=== PATIENT | male | born 1985 | race Caucasian/White ===

== ENCOUNTER 2018-06-10 17:10 | Emergency (ER) | payer SELFPAY ==
[2018-06-10 17:24] VITALS: BP 113/75; PULSE 95; RESP 16; TEMP 36.5; O2SAT 95
--- NOTE | 2018-06-10 18:28 | ED.GENADUL_ITS ---
Discharge Plan Disposition Patient Disposition: HOME Condition: Fair Discharge Details Chief Complaint: EyeProblem Clinical Impression: Hordeolum Primary Care Provider: José Manuel Stern ED Provider: Sylwia Andersen Home Meds and New Rx's Prescriptions: Continue lisinopril 10 MG tablet 30 mg PO DAILY RF: 0 fluoxetine [Prozac] 20 MG capsule 1 cap PO DAILY RF: 0 ibuprofen 600 MG tablet 600 mg PO Q8H PRN (Reason: Pain) Qty: 20 RF: 0 omeprazole magnesium [Prilosec OTC] 20 MG tablet,delayed release (DR/EC) 40 mg PO PRN PRNRF: 0 Discharge Instructions Instructions: Stye (ED) Additional Instructions: Warm compresses 4-5 times daily. Please keep warm compress on for 15 minutes. Erythromycin ointment to the affected eye 4 times daily. Please follow-up with primary care in 1 week if symptoms are not improving. Please wash the eye twice daily with baby shampoo. If he develops eye pain, visual changes, fever/ chills, spreading of the redness or other new/worsening symptoms please seek care urgently once again Referrals: José Manuel Stern [Primary Care Provider] - ([phone]) Discharge Data Discharge Date/Time-TO BE ENTERED AT DEPARTURE: 06/10/18 22:07 Medical Decision Making MDM Narrative Medical decision making narrative: Patient presents today with 2 focal areas of swelling, discomfort and erythema to the inferior left eyelid. Patient reports that he has had styes in the past. States he is he is used warm compresses very intermittently since onset of symptoms. I advised that he begin using warm compresses for 15 minutes 4-5 times daily. Advised to wash with baby shampoo. As this is a recurrent issue for the patient in the area has continued to increase in size and erythema as well as discomfort, feel that antibiotics are warranted at this time. He will be treated with erythromycin ophthalmic ointment. Instructions on how to place this will be given by nursing staff. I have asked to follow-up with primary care within the next week. We discussed new/worsening symptoms once care urgently once again. All his questions and concerns were addressed and he is in agreement with this plan. HPI - General Adult General Mode of arrival: ambulatory . Date/Time Provider Initiated Documentation: 06/10/18 17:53 . Limitations to Documentation: no limitations . Information obtained by: patient . HPI Narrative: Patient is a 29-year-old male presented with chief complaint of left eye discomfort. He reports symptoms began 4 days ago. Noted swelling and erythema to the lower eyelid. States that he has had issues with styes in the past. Reports that this is similar component although the medial one is much more swollen typical. He states that the patient seems to be blurring but attributes this to overabundance of tearing. Denies any visual changes beyond the excessive tearing. Denies any pain in the eye itself with movement of the eye. However, blinking does cause discomfort in the lower lid. He has been using warm compresses intermittently. Denies any fevers or chills Related Data Home Medications Medication Instructions Recorded Confirmed fluoxetine [Prozac] 1 cap PO DAILY 12/24/14 06/10/18 lisinopril 30 mg PO DAILY 12/24/14 06/10/18 omeprazole magnesium [Prilosec OTC] 40 mg PO PRN PRN 04/10/18 06/10/18 Previous Rx's Medication Instructions Recorded ibuprofen 600 mg PO Q8H PRN #20 tab 04/06/18 Allergies Allergy/AdvReac Type Severity Reaction Status Date / Time No Known Allergies Allergy Unverified 06/10/18 17:26 General Stated Complaint: EyeProblem TANNA: 3 Review of Systems Constitutional Reports as per HPI, Denies chills, Denies fever(s) and Denies headache(s) Eyes Patient Reports as per HPI ENT Denies vertigo, Denies headache(s), Denies mouth pain, Denies nasal congestion and Denies nasal discharge Cardiovascular Denies chest pain Respiratory Denies chest congestion and Denies cough Gastrointestinal Denies nausea and Denies vomiting Integumentary/Breasts Denies rash Neurologic Denies vertigo and Denies headache(s) [facility]LY [facility] Social History Smoking/Tobacco Use Status: Former Tobacco Use Exam Const General: cooperative, healthy appearing, comfortable, no acute distress and well developed Nutritional Appearance: average body habitus Orientation: alert and awake [facility] Head: normal to inspection, normocephalic and atraumatic Ears: hearing grossly normal bilaterally, external ears normal and TM's normal bilaterally General nose exam: external nose normal Face and sinus: normal facial exam Mouth: oral mucosae normal Throat: posterior oropharynx normal Eyes Visual Tolentino: normal visual tolentino by confrontation Alignment and Position: alignment normal Eyelids: eyelid abnormality left lower eyelid inflamed cyst, erythema ( localized to areas of swelling, please see below), swelling and tenderness Conjunctivae: conjunctivae normal Pupils: PERRL EOM: EOM intact bilaterally Eyes/upper lids images: 2 1. 2. Neck Neck: normal visual inspection and no lymphadenopathy Resp Effort & Inspection: normal respiratory effort, able to speak in complete sentences and no respiratory distress Skin General skin exam: erythema (as above) Neuro General: alert and awake Cranial Nerves: PERRL, EOM intact bilaterally and no nystagmus Cognition: normal cognition Speech: speech normal Gait: normal gait Psych Appearance: grossly normal and well kempt Mental Status: mental status grossly normal Speech and Movement: speech and movement normal Mood: congruent mood Affect: normal affect Course Vital Signs Temperature 36.5 C 06/10/18 17:24 Pulse 95 H 06/10/18 17:24 Respiratory Rate 16 06/10/18 17:24 Blood Pressure 113/75 06/10/18 17:24 Pulse Oximetry 95 06/10/18 17:24 Temperature 36.5 C 06/10/18 17:24 Pulse 95 H 06/10/18 17:24 Respiratory Rate 16 06/10/18 17:24 Blood Pressure 113/75 06/10/18 17:24 Pulse Oximetry 95 06/10/18 17:24
[2018-06-10] MEDS: Erythromycin Ophth Oint 3.5 GM TUBE OS (18:38)
== END 2018-06-10 22:07 | disposition home or self-care (01) ==
PROVIDERS: Emergency Provider Physician Assistant; PCP Family Medicine
DX: H00.025 Hordeolum internum left lower eyelid (principal)
CPT/HCPCS: 99283

== ENCOUNTER 2019-03-12 17:35 | Emergency (ER) | payer SELFPAY ==
[2019-03-12 17:41] VITALS: BP 129/75; PULSE 91; RESP 20; TEMP 36.9; O2SAT 96
--- NOTE | 2019-03-12 18:00 | W.ED.GENAD ---
Discharge Plan Disposition Patient Disposition: HOME Condition: Fair Discharge Details Chief Complaint: Cellulitis Clinical Impression: Abscess, Cellulitis Primary Care Provider: José Manuel Stern ED Provider: Sylwia Andersen Home Meds and New Rx's Prescriptions: New clindamycin HCl 150 mg capsule 450 mg PO TID Qty: 45 RF: 0 Continued lisinopril 10 MG tablet 30 mg PO DAILY RF: 0 fluoxetine [Prozac] 20 MG capsule 1 cap PO DAILY RF: 0 ibuprofen 600 MG tablet 600 mg PO Q8H PRN (Reason: Pain) Qty: 20 RF: 0 Prilosec OTC 20 MG tablet,delayed release (DR/EC) 40 mg PO PRN PRNRF: 0 Discharge Instructions Instructions: Cellulitis (ED), Abscess (ED) Additional Instructions: Keep wound clean and dry. Please allow discharge to continue. Please take clindamycin as prescribed. Even if symptoms improve, please take the entire course. If the redness spreads beyond the confines of the marker, you develop fever/chills, increased pain or other new/worsening symptoms please seek care urgently once again. Please follow-up with primary care next week for reevaluation Referrals: José Manuel Stern [Primary Care Provider] - Discharge Data Discharge Date/Time-TO BE ENTERED AT DEPARTURE: 03/12/19 18:12 Medical Decision Making Patient presents today with chief complaint of bug bite to the upper abdomen. He reports a bug bite was approximately 2 weeks ago but that over the weekend he began to become erythematous and painful. States that initially it is quite itchy and appeared consistent with mosquito bite. On exam, he has cellulitis to the upper abdomen with central area of fluctuance consistent with an abscess. This is actively draining and I am able to express more out through the open wounds. At this point, I do not feel that opening this further is necessary. Patient will be placed on antibiotics. We discussed the expected course for this. He was given strict return precautions. We will follow-up with primary care next week if not improved. All his questions and concerns were addressed and he is in agreement with this plan As patient is on Lisinopril, will not use Bactrim, will use Clindamycin. HPI General Mode of arrival: ambulatory. Date/Time Provider Initiated Documentation: 03/12/19 17:48. Limitations to Documentation: no limitations. Information obtained by: patient and RN notes reviewed. History of Present Illness 33 year old M presents to the emergency department with the chief complaint of infected bug bite, described as moderate, with intensity rated at 4. Quality is described as burning, and is localized to the abdomen. Patient reports no radiation. Patient started experiencing this day(s) and it has been constant. No relieving factors improve symptom(s), No exacerbating factors reported . Patient notes no other symptoms.; denies fever/chills, nausea/vomiting and weakness. Patient did receive the following treatments prior to arrival, none Related Data Home Medications Medication Instructions Recorded Confirmed fluoxetine [Prozac] 1 cap PO DAILY 12/24/14 03/12/19 lisinopril 30 mg PO DAILY 12/24/14 03/12/19 ibuprofen 600 mg PO Q8H PRN #20 tab 04/06/18 03/12/19 Prilosec OTC 40 mg PO PRN PRN 04/10/18 03/12/19 clindamycin HCl 450 mg PO TID #45 cap 03/12/19 Previous Rx's Medication Instructions Recorded ibuprofen 600 mg PO Q8H PRN #20 tab 04/06/18 clindamycin HCl 450 mg PO TID #45 cap 03/12/19 Allergies Allergy/AdvReac Type Severity Reaction Status Date / Time No Known Allergies Allergy Unverified 03/12/19 17:42 General Stated Complaint: Cellulitis TANNA: 3 Review of Systems Constitutional Reports as per HPI, Denies chills and Denies fever(s) Musculoskeletal Reports as per HPI Integumentary/Breasts Reports as per HPI Neurologic Reports as per HPI, Denies sensory deficit and Denies paresthesias [facility] Social History Smoking/Tobacco Use Status: Former Tobacco Use Alcohol Intake: former Drug use: Daily Substance use type: marijuana Special ivan needs: No Do you feel safe at home: Yes Do you feel safe in your relationship?: Yes Exam Const General: cooperative, healthy appearing, comfortable, no acute distress and well developed Nutritional Appearance: average body habitus and well nourished Orientation: alert and awake Resp Effort & Inspection: normal respiratory effort, able to speak in complete sentences and no respiratory distress Cardio Rate: regular rate Rhythm: regular rhythm GI Inspection: abnormal to inspection (skin exam as below) Skin General skin exam: erythema (cellulitis to abdomen as below) and fluctuance (central area of fluctuance, draining thick yellow fluid) Full body images: 1. area of abscess 2. surrounding erythema Neuro General: alert and awake Cognition: normal cognition Speech: speech normal Gait: normal gait Sensory Exam: no sensory deficits noted Psych Appearance: grossly normal and well kempt Mental Status: mental status grossly normal Speech and Movement: speech and movement normal Course Vital Signs Temperature 36.9 C 03/12/19 17:41 Pulse 91 H 03/12/19 17:41 Respiratory Rate 20 03/12/19 17:41 Blood Pressure 129/75 03/12/19 17:41 Pulse Oximetry 96 03/12/19 17:41 Temperature 36.9 C 03/12/19 17:41 Temperature Source Temporal Artery Scan 03/12/19 17:41 Pulse 91 H 03/12/19 17:41 Respiratory Rate 20 03/12/19 17:41 Respiratory Effort Non-Labored 03/12/19 17:41 Blood Pressure 129/75 03/12/19 17:41 Pulse Oximetry 96 03/12/19 17:41 Pain Level 4 03/12/19 17:41
--- NOTE | 2019-03-12 18:04 | ED.GENADUL_ITS ---
Discharge Plan Disposition Patient Disposition: HOME Condition: Fair Discharge Details Chief Complaint: Cellulitis Clinical Impression: Abscess, Cellulitis Primary Care Provider: José Manuel Stern ED Provider: Sylwia Andersen Home Meds and New Rx's Prescriptions: New clindamycin HCl 150 mg capsule 450 mg PO TID Qty: 45 RF: 0 Continued lisinopril 10 MG tablet 30 mg PO DAILY RF: 0 fluoxetine [Prozac] 20 MG capsule 1 cap PO DAILY RF: 0 ibuprofen 600 MG tablet 600 mg PO Q8H PRN (Reason: Pain) Qty: 20 RF: 0 Prilosec OTC 20 MG tablet,delayed release (DR/EC) 40 mg PO PRN PRNRF: 0 Discharge Instructions Instructions: Cellulitis (ED), Abscess (ED) Additional Instructions: Keep wound clean and dry. Please allow discharge to continue. Please take clindamycin as prescribed. Even if symptoms improve, please take the entire course. If the redness spreads beyond the confines of the marker, you develop fever/chills, increased pain or other new/worsening symptoms please seek care urgently once again. Please follow-up with primary care next week for reevaluation Referrals: José Manuel Stern [Primary Care Provider] - Discharge Data Discharge Date/Time-TO BE ENTERED AT DEPARTURE: 03/12/19 18:12 Medical Decision Making Patient presents today with chief complaint of bug bite to the upper abdomen. He reports a bug bite was approximately 2 weeks ago but that over the weekend he began to become erythematous and painful. States that initially it is quite itchy and appeared consistent with mosquito bite. On exam, he has cellulitis to the upper abdomen with central area of fluctuance consistent with an abscess. This is actively draining and I am able to express more out through the open wounds. At this point, I do not feel that opening this further is necessary. Patient will be placed on antibiotics. We discussed the expected course for this. He was given strict return precautions. We will follow-up with primary care next week if not improved. All his questions and concerns were addressed and he is in agreement with this plan As patient is on Lisinopril, will not use Bactrim, will use Clindamycin. HPI General Mode of arrival: ambulatory . Date/Time Provider Initiated Documentation: 03/12/19 17:48 . Limitations to Documentation: no limitations . Information obtained by: patient and RN notes reviewed . History of Present Illness 33 year old M presents to the emergency department with the chief complaint of infected bug bite, described as moderate, with intensity rated at 4. Quality is described as burning, and is localized to the abdomen. Patient reports no radiation. Patient started experiencing this day(s) and it has been constant. No relieving factors improve symptom(s), No exacerbating factors reported . Patient notes no other symptoms.; denies fever/chills, nausea/vomiting and weakness. Patient did receive the following treatments prior to arrival, none Related Data Home Medications Medication Instructions Recorded Confirmed fluoxetine [Prozac] 1 cap PO DAILY 12/24/14 03/12/19 lisinopril 30 mg PO DAILY 12/24/14 03/12/19 ibuprofen 600 mg PO Q8H PRN #20 tab 04/06/18 03/12/19 Prilosec OTC 40 mg PO PRN PRN 04/10/18 03/12/19 clindamycin HCl 450 mg PO TID #45 cap 03/12/19 Previous Rx's Medication Instructions Recorded ibuprofen 600 mg PO Q8H PRN #20 tab 04/06/18 clindamycin HCl 450 mg PO TID #45 cap 03/12/19 Allergies Allergy/AdvReac Type Severity Reaction Status Date / Time No Known Allergies Allergy Unverified 03/12/19 17:42 General Stated Complaint: Cellulitis TANNA: 3 Review of Systems Constitutional Reports as per HPI, Denies chills and Denies fever(s) Musculoskeletal Reports as per HPI Integumentary/Breasts Reports as per HPI Neurologic Reports as per HPI, Denies sensory deficit and Denies paresthesias REPLACED BY [facility] Social History Smoking/Tobacco Use Status: Former Tobacco Use Alcohol Intake: former Drug use: Daily Substance use type: marijuana Special ivan needs: No Do you feel safe at home: Yes Do you feel safe in your relationship?: Yes Exam Const General: cooperative, healthy appearing, comfortable, no acute distress and well developed Nutritional Appearance: average body habitus and well nourished Orientation: alert and awake Resp Effort & Inspection: normal respiratory effort, able to speak in complete sentences and no respiratory distress Cardio Rate: regular rate Rhythm: regular rhythm GI Inspection: abnormal to inspection (skin exam as below) Skin General skin exam: erythema (cellulitis to abdomen as below) and fluctuance (central area of fluctuance, draining thick yellow fluid) Full body images: 1. area of abscess 2. surrounding erythema Neuro General: alert and awake Cognition: normal cognition Speech: speech normal Gait: normal gait Sensory Exam: no sensory deficits noted Psych Appearance: grossly normal and well kempt Mental Status: mental status grossly normal Speech and Movement: speech and movement normal Course Vital Signs Temperature 36.9 C 03/12/19 17:41 Pulse 91 H 03/12/19 17:41 Respiratory Rate 20 03/12/19 17:41 Blood Pressure 129/75 03/12/19 17:41 Pulse Oximetry 96 03/12/19 17:41 Temperature 36.9 C 03/12/19 17:41 Temperature Source Temporal Artery Scan 03/12/19 17:41 Pulse 91 H 03/12/19 17:41 Respiratory Rate 20 03/12/19 17:41 Respiratory Effort Non-Labored 03/12/19 17:41 Blood Pressure 129/75 03/12/19 17:41 Pulse Oximetry 96 03/12/19 17:41 Pain Level 4 03/12/19 17:41
[2019-03-12 18:09] VITALS: BP 129/75; PULSE 91; RESP 20; TEMP 36.9; O2SAT 96
== END 2019-03-12 18:12 | disposition home or self-care (01) ==
PROVIDERS: Emergency Provider Physician Assistant; PCP Family Medicine
DX: L02.211 Cutaneous abscess of abdominal wall (principal); I10 Essential (primary) hypertension
CPT/HCPCS: 99283

== ENCOUNTER 2020-12-15 04:26 | Emergency (ER) | payer OTHER, SELFPAY ==
[2020-12-15 04:31] VITALS: BP 138/88; PULSE 86; RESP 18; TEMP 36.7; O2SAT 98
--- NOTE | 2020-12-15 04:38 | W.ED.GENAD ---
Discharge Plan Disposition Patient Disposition: HOME Condition: Stable Discharge Details Clinical Impression: Back strain, Muscle spasm Primary Care Provider: José Manuel Stern ED Provider: Jaden Cuadra Home Meds and New Rx's Prescriptions: New cyclobenzaprine 10 mg tablet 10 mg PO TID PRNQty: 20 RF: 0 Continued lisinopril 10 MG tablet 30 mg PO DAILY RF: 0 fluoxetine [Prozac] 20 MG capsule 1 cap PO DAILY RF: 0 ibuprofen 600 MG tablet 600 mg PO Q8H PRN (Reason: Pain) Qty: 20 RF: 0 omeprazole magnesium [Prilosec OTC] 20 MG tablet,delayed release (DR/EC) 40 mg PO PRN PRNRF: 0 Discharge Instructions Instructions: Muscle Spasm (ED) Additional Instructions: do not drink alcohol or drive if you take the muscle relaxer you can also take 1000mg tylenol and 600mg ibuprofen every 6 hours as needed for pain if pain continues in a week return to the emergency department if you have severe worsening pain, difficulty breathing, difficulty urinating or feel more ill return to the emergency department Stand Alone Forms: Work Release Medical Decision Making 34 yo male who has a hx of htn and gerd comes in after he was at work pulling heavy objects when he started to have mid to lower back pain. Denies falls or trauma. No fevers, difficulty urinating or weakness. He localizes the pain throughout the lumbar region without visible or palpable abnormality. No abdominal tenderness. Normal sensation and strength in the legs and no saddle anesthesia on exam. Pain and mechanism seem most consistent with back strain vs spasm. no findings to suggest cauda equina or spinal epidural abscess on history or physical and symptoms started after pulling heavy objects so also doubt kidney stone, dissection, aaa at this time. Will tx with nsaids and reassess. pt with mild relief of pain with toradol and stable exam. I offered to give him a muscle relaxer here and reassess him but he declines and would prefer d/c and take the muscle relaxer at home. Muscle relaxers provided and he was advised to f/u with pcp with return precautions Differential Diagnosis Differential Diagnosis: spasm, strain, radiculopathy HPI General Mode of arrival: ambulatory. Date/Time Provider Initiated Documentation: 12/15/20 04:32. Limitations to Documentation: no limitations. Information obtained by: patient. History of Present Illness 34 year old M presents to the emergency department with the chief complaint of back pain, described as moderate, Patient started experiencing this hour(s) (4) and it has been constant. No relieving factors improve symptom(s), No exacerbating factors reported . Patient notes no other symptoms.. Patient did receive the following treatments prior to arrival, none Related Data Home Medications Medication Instructions Recorded Confirmed fluoxetine [Prozac] 1 cap PO DAILY 12/24/14 12/15/20 lisinopril 30 mg PO DAILY 12/24/14 12/15/20 ibuprofen 600 mg PO Q8H PRN #20 tab 04/06/18 12/15/20 omeprazole magnesium [Prilosec OTC] 40 mg PO PRN PRN 04/10/18 12/15/20 cyclobenzaprine 10 mg PO TID PRN #20 tab 12/15/20 Previous Rx's Medication Instructions Recorded ibuprofen 600 mg PO Q8H PRN #20 tab 04/06/18 cyclobenzaprine 10 mg PO TID PRN #20 tab 12/15/20 Allergies Allergy/AdvReac Type Severity Reaction Status Date / Time No Known Allergies Allergy Unverified 12/15/20 04:34 General Stated Complaint: Nk/Back Pain TANNA: 4 Review of Systems All systems reviewed & are unremarkable except as noted in HPI and below Constitutional Constitutional: Denies chills, Denies fever(s) and Denies weakness Cardiovascular Cardiovascular: Denies chest pain and Denies dyspnea Respiratory Respiratory: Denies cough and Denies dyspnea Gastrointestinal Gastrointestinal: Denies abdominal pain, Denies nausea and Denies vomiting Musculoskeletal Musculoskeletal: Denies joint swelling Neurologic Neurologic: Denies weakness Psychiatric Psychiatric: Denies depression [facility] Social History (Updated 06/14/18 @ 08:42 by Yojana Lewis RN) Smoking/Tobacco Use Status: Former Tobacco Use Smoking risk assessment performed?: Yes Alcohol Intake: former Drug use: Daily Substance use type: marijuana Special ivan needs: No Do you feel safe at home: Yes Do you feel safe in your relationship?: Yes Exam Const General: no acute distress Orientation: alert HENMT Head: normal to inspection Ears: external ears normal General nose exam: external nose normal Mouth: moist mucous membranes Eyes General: appearance normal, both eyes and all related structures Neck Neck: normal visual inspection Resp Effort & Inspection: normal respiratory effort and able to speak in complete sentences Cardio Rate: regular rate Back/Spine/Pelvis Back: No mass, No erythema and No warmth Skin General skin exam: no rashes or lesions noted Neuro General: patient alert and patient oriented x3 Extrem General: normal to inspection Psych Mental Status: mental status grossly normal Course Vital Signs Vital signs: Vital Signs Temperature 36.7 C 12/15/20 04:31 Pulse 86 12/15/20 04:31 Respiratory Rate 18 12/15/20 04:31 Blood Pressure 138/88 12/15/20 04:31 Pulse Oximetry 98 12/15/20 04:31 Temperature 36.7 C 12/15/20 04:31 Temperature Source Tympanic 12/15/20 04:31 Pulse 86 12/15/20 04:31 Respiratory Rate 18 12/15/20 04:31 Respiratory Effort Non-Labored 12/15/20 04:31 Blood Pressure 138/88 12/15/20 04:31 Blood Pressure Position Sitting 12/15/20 04:31 Pulse Oximetry 98 12/15/20 04:31 Oxygen Delivery Method Room Air 12/15/20 04:31 Oxygen Flow Rate 0 12/15/20 04:31 Pain Level 10 12/15/20 04:31
[2020-12-15] MEDS: Ketorolac 15 MG/ML VIAL IVP (04:45)
== END 2020-12-15 05:15 | disposition home or self-care (01) ==
PROVIDERS: Emergency Provider Emergency Medicine; PCP Family Medicine
DX: M62.830 Muscle spasm of back (principal); S39.012A Strain of muscle, fascia and tendon of lower back, initial encounter; X50.0XXA Overexertion from strenuous movement or load, initial encounter
CPT/HCPCS: 96374; 99284; 99283; J1885

== ENCOUNTER 2021-09-26 15:46 | Outpatient (REF) | payer SELFPAY ==
[2021-09-27 16:36] LABS: COVID-19 RT-PCR UVMMC Result Negative (Negative)
== END 2021-09-26 15:47 | disposition home or self-care (01) ==
LOC: LBN 15:46
PROVIDERS: PCP Family Medicine; Visit Provider Physician Assistant
DX: Z20.822 Contact with and (suspected) exposure to COVID-19 (principal)
CPT/HCPCS: U0003

== ENCOUNTER 2022-06-25 10:31 | Emergency (ER) | payer SELFPAY ==
[2022-06-25 10:55] VITALS: BP 140/77; PULSE 84; RESP 16; TEMP 37.2; O2SAT 98
[2022-06-25 12:42] VITALS: RESP 20
--- NOTE | 2022-06-25 13:51 | ED.GENADUL_ITS ---
Discharge Plan Disposition Patient Disposition: HOME Condition: Stable Discharge Details Clinical Impression: Sinusitis Primary Care Provider: Melissa Dobbs ED Provider: Nj Wilson Home Meds and New Rx's Prescriptions: New benzonatate 200 mg capsule 200 mg PO TID PRN (Reason: cough) Qty: 30 0RF amoxicillin-pot clavulanate 875-125 mg tablet 1 tab PO Q12H 7 Days Qty: 14 0RF Continued lisinopril 10 MG tablet 30 mg PO DAILY fluoxetine [Prozac] 20 MG capsule 1 cap PO DAILY ibuprofen 600 MG tablet 600 mg PO Q8H PRN (Reason: Pain) Qty: 20 0RF omeprazole magnesium [Prilosec OTC] 20 MG tablet,delayed release (DR/EC) 40 mg PO PRN PRN Discharge Instructions Instructions: Sinusitis (ED) Additional Instructions: Please continue to stay well-hydrated and take antibiotics as prescribed and follow for 7 days. If you develop any new or significant worsening of symptoms please return the emergency department for reassessment otherwise if not imp roving in the next 5 days please follow-up with your primary care provider for reassessment. Stand Alone Forms: Work Release Referrals: Melissa Dobbs, GRADING MACHINE OPERATOR [Primary Care Provider] - 5 days (if not improving) Discharge Data Discharge Date/Time-TO BE ENTERED AT DEPARTURE: 06/25/22 14:03 Medical Decision Making Patient presenting to the clinic for chief complaint of cold symptoms. Patient reports symptoms have been going on for the past 7 days with worsen in the past 2 days. reports headache, sinus pressure, nasal congestion, and sore throat. Physical exam shows mnormal posterior pharynx and tonsillar, no anterior cervical lymphadenopathy, significant sinus pressure, dry cough heard during exam otherwise clear lung sounds and otherwise unremarkable exam. Patient has no signs of meningitis, peritonsillar abscess, retropharyngeal abscess, Estevan's angina, or life-threatening Airway infection. Given duration of symptoms and acute worsening will place patient on antibiotics and prescribed benzoate for cough suppressant. Otherwise [id number] conservative management discussed along with follow-up and return precautions. After discussion of diagnosis and plan of care patient has no further needs, questions, or concerns and states clear understanding to return to the emergency department for any worsening symptoms. This documentation was generated using [employer] system, please disregard any oddities of phrase or misspellings. HPI General Mode of arrival: ambulatory . Date/Time Provider Initiated Documentation: 06/25/22 12:00 . Limitations to Documentation: no limitations . Information obtained by: patient . History of Present Illness 36 year old M presents to the emergency department with the chief complaint of Cold symptoms with significant worsening sinus pressure, described as moderate, with intensity rated at 8. Quality is described as aching, and is localized to the face. Patient started experiencing this week(s) (1) and it has been other (Worsening). No relieving factors improve symptom(s), No exacerbating factors reported . Patient notes cough and malaise. Patient did receive the following treatments prior to arrival, other ([id number] meds) Related Data Home Medications Medication Instructions Recorded Confirmed fluoxetine 20 mg capsule (Prozac) 1 cap PO DAILY 12/24/14 06/25/22 lisinopril 10 mg tablet 30 mg PO DAILY 12/24/14 06/25/22 ibuprofen 600 mg tablet 600 mg PO Q8H PRN Pain #20 tabs 04/06/18 06/25/22 omeprazole magnesium 20 mg 40 mg PO PRN PRN 04/10/18 06/25/22 tablet,delayed release (Prilosec OTC) amoxicillin 875 mg-potassium 1 tab PO Q12H 7 days #14 tabs 06/25/22 clavulanate 125 mg tablet benzonatate 200 mg capsule 200 mg PO TID PRN cough #30 caps 06/25/22 Previous Rx's Medication Instructions Recorded ibuprofen 600 mg tablet 600 mg PO Q8H PRN Pain #20 tabs 04/06/18 amoxicillin 875 mg-potassium 1 tab PO Q12H 7 days #14 tabs 06/25/22 clavulanate 125 mg tablet benzonatate 200 mg capsule 200 mg PO TID PRN cough #30 caps 06/25/22 Allergies Allergy/AdvReac Type Severity Reaction Status Date / Time No Known Allergies Allergy Verified 06/25/22 12:37 General Stated Complaint: GenMedical TANNA: 3 Review of Systems Constitutional Constitutional: Reports body ache(s), Reports chills, Reports fever(s), Reports headache(s) and Reports malaise Eyes Eyes: Denies eye discharge ENT Ears, Nose, Mouth, and Throat: Reports as per HPI, Reports otalgia, Reports headache(s), Reports nasal congestion, Reports nasal discharge, Denies neck pain, Reports sinus pain, Reports sinus pressure, Reports sore throat and Denies throat swelling Cardiovascular Cardiovascular: Denies chest pain and Denies dyspnea Respiratory Respiratory: Reports cough and Denies dyspnea Musculoskeletal Musculoskeletal: Denies joint swelling and Denies neck pain Integumentary/Breasts Skin/Breast: Denies rash Neurologic Neurologic: Reports headache(s) Allergic/Immunologic Allergic/Immunologic: Denies throat swelling PFSH All Active Problems (Updated 06/25/22 @ 13:52 by Nj Wilson NP) Sinusitis (Acute) Back strain (Acute) Muscle spasm (Acute) Social History Smoking/Tobacco Use Status: Current every day Tobacco Type: cigarettes Smoking risk assessment performed?: Yes Alcohol Intake: former Drug use: Daily Substance use type: marijuana Special ivan needs: No Do you feel safe at home: Yes Do you feel safe in your relationship?: Yes Exam Const General: cooperative, comfortable and no acute distress Orientation: alert and awake HENTX Head: normal to inspection, normocephalic and atraumatic Ears: hearing grossly normal bilaterally and TM abnormal erythematous bilaterally; with no fluid behind the TM and with no loss of landmarks General nose exam: external nose normal Face and sinus: no erythema and sinus tenderness ethmoid and maxillary Mouth: oral mucosae normal, no drooling, no muffled voice and no trismus Throat: posterior oropharynx normal Neck Neck: normal visual inspection, full ROM, no lymphadenopathy, no meningeal signs, trachea midline and supple Resp Effort & Inspection: normal respiratory effort, able to speak in complete sentences and cough Quality of cough: dry Auscultation: clear to auscultation bilaterally Cardio Rate: regular rate Rhythm: regular rhythm Heart Sounds: S1 normal, S2 normal, normal S1 and S2, no click, no gallops, no murmurs and no rubs Skin General skin exam: no rashes or lesions noted and dry skin (warm) Neuro General: patient alert, patient awake, patient oriented x3, gait normal and moves all extremities Cognition: normal cognition Speech: speech normal Course Vital Signs Vital signs: Vital Signs Temperature 37.2 C 06/25/22 10:55 Pulse 84 06/25/22 10:55 Respiratory Rate 16 06/25/22 10:55 Blood Pressure 140/77 06/25/22 10:55 Pulse Oximetry 98 06/25/22 10:55 Temperature 37.2 C 06/25/22 10:55 Temperature Source Oral 06/25/22 10:55 Pulse 84 06/25/22 10:55 Respiratory Rate 20 06/25/22 12:42 Respiratory Effort 06/25/22 12:42 Respiratory Depth Normal 06/25/22 12:42 Respiratory Pattern Normal 06/25/22 12:42 Blood Pressure 140/77 06/25/22 10:55 Blood Pressure Position Sitting 06/25/22 10:55 Pulse Oximetry 98 06/25/22 10:55 Oxygen Delivery Method Room Air 06/25/22 10:55 Oxygen Flow Rate 0 06/25/22 10:55 Pain Level 5 06/25/22 10:55
[2022-06-25] MEDS: Amoxicillin 875/Clav. 125 TAB PO (13:59)
[2022-06-25] MEDS: Amox. 875/Clav. 125, 2 TABS/BTL 1 TAB PO (13:59)
[2022-06-25 14:04] VITALS: PULSE 80; RESP 20; TEMP 36.6; O2SAT 98
== END 2022-06-25 14:03 | disposition home or self-care (01) ==
PROVIDERS: Emergency Provider Nurse Practitioner Family; PCP Nurse Practitioner Family
DX: J32.9 Chronic sinusitis, unspecified (principal); F17.210 Nicotine dependence, cigarettes, uncomplicated
CPT/HCPCS: 36415; 99283; 99284

== ENCOUNTER 2022-09-18 08:11 | Emergency (ER) | payer SELFPAY ==
[2022-09-18 08:17] VITALS: BP 154/97; PULSE 90; TEMP 36.6; O2SAT 98
--- NOTE | 2022-09-18 08:45 | DI.RAD_ITS ---
Exam(s) XR LUMBAR SPINE COMPLETE EXAM: XR LUMBAR SPINE COMPLETE CLINICAL HISTORY: back pain, h/o fractures, no recent trauma. TECHNIQUE: 2D digital imaging was performed. COMPARISON: CR SACRUM COCCYX from 12/24/2014 FINDINGS: Five views: There is transitional anatomy with a transitional lumbosacral vertebra. 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 No evidence of acute fracture nor listhesis. Pars defect noted at the transitional vertebra level. Mild disc space narrowing noted 1 level above this as well as L3-4 level. No osseous lesions. No si gnificant scoliosis. No obvious facet arthropathy. IMPRESSION: Findings as above. Please note that there is a transitional lumbosacral vertebra here. DATA REPOSITORY: RADIATION DOSE DELIVERED:
--- NOTE | 2022-09-18 08:46 | ED.GENADUL_ITS ---
Discharge Plan Disposition Patient Disposition: Home Discharge Details Clinical Impression: Low back pain Primary Care Provider: José Manuel Stern ED Provider: Henrietta Garcia Home Meds and New Rx's Prescriptions: New prednisone 20 mg tablet 40 mg PO DAILY Qty: 8 0RF cyclobenzaprine 10 mg tablet 10 mg PO TID PRNQty: 9 0RF lidocaine [Lidoderm] 5 % adhesive patch,medicated 1 patch topical DAILY Qty: 15 0RF Rx Instructions: leave on most painful area for up to 12 hrs, use only one patch per 24 hour period. Continued lisinopril 10 MG tablet 30 mg PO DAILY fluoxetine [Prozac] 20 MG capsule 1 cap PO DAILY ibuprofen 600 MG tablet 600 mg PO Q8H PRN (Reason: Pain) Qty: 20 0RF omeprazole magnesium [Prilosec OTC] 20 MG tablet,delayed release (DR/EC) 40 mg PO PRN PRN Discharge Instructions Instructions: Low Back Strain (ED), Muscle Spasm (ED) Additional Instructions: Please return immediately to the emergency department if you develop any new or worsening symptoms, if your condition does not improve as expected, or if you become otherwise concerned. It is extremely important that you call soon as possible to make an appointment to be seen in follow-up for this visit by your primary care doctor. Do not take Flexeril/cyclobenzaprine within 6 hours of using alcohol or sedating medications. Stand Alone Forms: Physical Therapy Referral, Work Release Referrals: José Manuel Stern [Primary Care Provider] - Discharge Data Discharge Date/Time-TO BE ENTERED AT DEPARTURE: 09/18/22 10:46 Medical Decision Making Concern for lumbar strain, herniated disk, other. Doubt pathologic fracture. Exam/hx at this time it not c/w CVA, cauda equina syndrome, epidural abscess/hematoma. Plan for xrays, pain meds. Xrays negative for acute process. Plan for flexeril, lidoderm patch, steroid burst, PT referral, outpt f/u. I had a discussion with Patient regarding return to emergency department precautions, home care, and importance of outpatient follow-up. Pt verbalizes understanding of the plan and is amenable. Patient discharged to home with clear plan for outpatient follow-up. All questions were answered. Disposition decision was made weighing the risks and benefits of hospitalization versus outpatient treatment, the risk for further decompensation, and the patient's wishes. HPI General Date/Time Provider Initiated Documentation: 09/18/22 08:34 . Limitations to Documentation: no limitations . Information obtained by: patient, RN notes reviewed and old records reviewed . HPI Narrative: Fabian Bond is a 36 y/o man with h/o HTN, chronic back pain presenting to the emergency department with back pain. Patient reports that he has had lower back pain since he was 18. He states that his back is typically very sore, and has been worse since fracturing his back several years ago. Patient reports that recently his back has been sore at its typical baseline. He denies any trauma, heavy lifting, heavy labor over the past few days. Patient reports that he woke up at 2 AM this morning with severe pain across his lower back, worse on the right lower back radiating into his right buttock and into the right anterior thigh. Patient reports that he stayed in bed this morning and has not taken anything for pain. Patient reports that he is able to walk but with significant pain. Patient states that pain has not been this severe in the past. He denies any other symptoms: No fever, no other pain, no cough, no shortness of breath, no fever, no vomiting, no constipation, no numbness, no weakness, no rash. He denies any numbness, tingling, weakness of the lower extremities including the saddle region. He denies any recent surgeries/procedures, denies any history of IVDU. Related Data Home Medications Medication Instructions Recorded Confirmed fluoxetine 20 mg capsule (Prozac) 1 cap PO DAILY 12/24/14 09/19/22 lisinopril 10 mg tablet 30 mg PO DAILY 12/24/14 09/19/22 ibuprofen 600 mg tablet 600 mg PO Q8H PRN Pain #20 tabs 04/06/18 09/19/22 omeprazole magnesium 20 mg 40 mg PO PRN PRN 04/10/18 09/19/22 tablet,delayed release (Prilosec OTC) cyclobenzaprine 10 mg tablet 10 mg PO TID PRN #9 tabs 09/18/22 09/19/22 lidocaine 5 % topical patch 1 patch topical DAILY #15 ea 09/18/22 09/19/22 (Lidoderm) prednisone 20 mg tablet 40 mg PO DAILY #8 tabs 09/18/22 09/19/22 Previous Rx's Medication Instructions Recorded ibuprofen 600 mg tablet 600 mg PO Q8H PRN Pain #20 tabs 04/06/18 cyclobenzaprine 10 mg tablet 10 mg PO TID PRN #9 tabs 09/18/22 lidocaine 5 % topical patch 1 patch topical DAILY #15 ea 09/18/22 (Lidoderm) prednisone 20 mg tablet 40 mg PO DAILY #8 tabs 09/18/22 Allergies Allergy/AdvReac Type Severity Reaction Status Date / Time No Known Allergies Allergy Verified 09/19/22 09:43 General Stated Complaint: Orthopedic TANNA: 4 Review of Systems Narrative: Constitutional: denies fevers Eyes: denies eye pain ENT: denies ear pain, dental pain, sore throat Cardiovascular: denies chest pain, edema Respiratory: denies SOB, cough GI: denies abdominal pain, vomiting, diarrhea : denies flank pain, urinary hesitation, incontinence MSK: denies neck pain, arthralgias, myalgias, reports lower back pain as per HPI Skin: denies rash Neuro: denies headaches, numbness including of the saddle region, weakness PFSH All Active Problems Vitamin D deficiency (Acute) Psychophysiologic insomnia (Acute) Psoriasis (Chronic) Impaired glucose tolerance (Acute) Hypertensive disorder (Chronic) Depressive disorder (Chronic) Claustrophobia (Acute) Chest pain (Acute) ADHD (attention deficit hyperactivity disorder) (Acute) Arthropathy (Acute) Back strain (Acute) Muscle spasm (Acute) Family History Mother Alcohol use disorder Depression Diabetes Father Alcohol use disorder Depression Hyperlipidemia Hypertension Sister No problems noted. Sister No problems noted. Brother No problems noted. Son No problems noted. Son No problems noted. Daughter No problems noted. Social History Smoking/Tobacco Use Status: Current every day Tobacco Type: cigarettes Tobacco: How many years used: 25 Second Hand Exposure: Yes Smoking risk assessment performed?: Yes Alcohol Intake: never Drug use: Never Household members: spouse and children Housing: house Communication Needs: None Do you need help understanding health information?: Never Pets and animals: Yes Pets and animals: cat(s), dog(s) and farm animals Sexually active: Yes Do you think of yourself as: straight/heterosexual Current gender identity: male What is your relationship status?: How often do you talk on the phone with friends or family?: decline to answer How often do you get together with friends or relatives?: decline to answer How often do you attend scientologist or advent services?: decline to answer Do you belong to any clubs or organized social groups?: decline to answer Panel score (0-1 are the most socially isolated patients): 1 What type of physical activity do you participate in: walking and weight lifting Duration: 60-90 minutes/day Frequency: 5-6 times per week Cassandra/Mandaen: None Special cassandra needs: No Seatbelt use: always Helmet use: Yes Helmet use: always Drive intox or ride w/intox trash collector truck driver: No Do you feel safe at home: Yes Do you feel safe in your relationship?: Yes Exam Narrative Exam Narrative: Constitutional: well and [id number], pleasant, appears uncomfortable, conversing normally HENT: head atraumatic/normocephalic/normal inspection, mucous membranes moist Eyes: conjunctiva normal, sclera normal, pupils 3mm b/l Neck: no stridor, normal ROM, trachea midline Chest: normal inspection Resp: normal work of breathing, speaking in full sentences Cardio: normal rate, normal rhythm GI: abdomen soft, non-tender, non-distended Back: normal inspection, no rash, tenderness to palpation diffusely of the lower lumbar spine and paraspinals, worse on the right, no point TTP Skin: warm, dry, normal color, no rash Neuro: alert, not altered, grossly non-focal, motor 5/5 b/l LEs, sensation intact b/l LEs, normal tone, gait slow but otherwise normal Ext: no edema Psych: normal mood, normal affect, normal behavior Course Vital Signs Vital signs: Vital Signs Temperature 36.6 C 09/18/22 08:17 Pulse 90 09/18/22 08:17 Blood Pressure 154/97 H 09/18/22 08:17 Pulse Oximetry 98 09/18/22 08:17 Temperature 36.6 C 09/18/22 08:17 Temperature Source Oral 09/18/22 08:17 Pulse 90 09/18/22 08:17 Respiratory Effort 09/18/22 08:20 Blood Pressure 154/97 H 09/18/22 08:17 Blood Pressure Position Sitting 09/18/22 08:17 Pulse Oximetry 98 09/18/22 08:17 Oxygen Delivery Method Room Air 09/18/22 08:17 Oxygen Flow Rate 0 09/18/22 08:17 Pain Level 10 09/18/22 08:17
[2022-09-18] MEDS: HYDROmorphone 2 MG/ML SYR 1 MG IM (09:03)
--- NOTE | 2022-09-18 09:43 | DI.VRAD_ITS ---
PROCEDURE INFORMATION: Exam: XR Lumbosacral Spine Exam date and time: 09/18/2022 8:57 AM Age: 36 years old Clinical indication: Other: Back pain, h/o fractures, no recent trauma TECHNIQUE: Imaging protocol: Radiologic exam of the lumbosacral spine. Views: 4 or 5 views. COMPARISON: CT LUMBAR SPINE WITHOUT CONTRAST 05/22/2017 10:52 AM FINDINGS: Bones/joints: Minimal mild superior endplate compression fractures which appear old from T12 , L1 and L3 . 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 No definite acute fracture. Soft tissues: Unremarkable. IMPRESSION: No acute findings. Additional findings as described. Dictated and Authenticated by: Kelly Graves MD. Ordering:LISET Shrestha MD
[2022-09-18] MEDS: Lidocaine 5% Patch 1 PATCH TP (09:55)
[2022-09-18] MEDS: predniSONE 20 MG TAB 40 MG PO (09:55)
[2022-09-18] MEDS: Cyclobenzaprine 10 MG TAB PO (09:55)
[2022-09-18 10:23] VITALS: BP 125/80; PULSE 84; RESP 18; TEMP 37; O2SAT 98
== END 2022-09-18 10:46 | disposition home or self-care (01) ==
PROVIDERS: Emergency Provider Student in an Organized Health Care Education/Training Program; PCP Family Medicine
DX: G89.29 Other chronic pain; M54.50 Low back pain, unspecified; I10 Essential (primary) hypertension; F90.9 Attention-deficit hyperactivity disorder, unspecified type
CPT/HCPCS: 96372; 99284; 72110; J1170; J7512

== ENCOUNTER 2022-09-19 09:09 | Emergency (ER) | payer SELFPAY ==
[2022-09-19 09:12] VITALS: BP 140/86; PULSE 99; RESP 20; TEMP 37; O2SAT 100
--- NOTE | 2022-09-19 09:33 | ED.GENADUL_ITS ---
Discharge Plan Disposition Patient Disposition: Home Condition: Stable Discharge Details Clinical Impression: Herniated lumbar intervertebral disc, Lumbago with sciatica, right side Primary Care Provider: José Manuel Stern ED Provider: Radha Chakraborty Home Meds and New Rx's Prescriptions: Continued lisinopril 10 MG tablet 30 mg PO DAILY fluoxetine [Prozac] 20 MG capsule 1 cap PO DAILY ibuprofen 600 MG tablet 600 mg PO Q8H PRN (Reason: Pain) Qty: 20 0RF omeprazole magnesium [Prilosec OTC] 20 MG tablet,delayed release (DR/EC) 40 mg PO PRN PRN prednisone 20 mg tablet 40 mg PO DAILY Qty: 8 0RF cyclobenzaprine 10 mg tablet 10 mg PO TID PRNQty: 9 0RF lidocaine [Lidoderm] 5 % adhesive patch,medicated 1 patch topical DAILY Qty: 15 0RF Rx Instructions: leave on most painful area for up to 12 hrs, use only one patch per 24 hour period. Discharge Instructions Instructions: Sciatica (ED), Lumbar Radiculopathy (ED) Additional Instructions: Please follow-up with your primary care provider regarding possibility for MRI and referral to a inbound ingredient logistics specialist. It appears on CT that you have an extra vertebrae and a herniated disc which commonly presents with these kinds of symptoms. Please follow-up sooner for any loss of bowel or bladder control, loss of movement in your leg, or feeling like you cannot urinate or have a bowel movement or any numbness to your groin area. Please take Tylenol or Ibuprofen with food every 4-6 hours as needed for pain and swelling. Continue taking the muscle relaxer prednisone and lidocaine patch as previously prescribed. Stand Alone Forms: Physical Therapy Referral Referrals: [facility] [Outside] (Spine Specilaist) José Manuel Stern [Primary Care Provider] - 5 days (To discuss MRI and Spine Referral) Medical Decision Making 36-year-old male presents to the ER with a chief complaint of lower back pain with right lower extremity radiation of pain. He was seen here yesterday and had L-spine x-rays was given prednisone lidocaine patch and Flexeril which he did take this morning he has been taking as prescribed. He reports that he woke up this morning with numbness to his right lateral foot which radiates up into his lateral right calf. He denies any loss of bowel or bladder control, no saddle anesthesia. No other associated symptoms or concern. Gross motor is intact on my exam. Does have a pa I did discuss treatment and further evaluation options with patient we will give him a Valium, Toradol, CT L-spine ordered. I did also discuss with him physical therapy. MRI is considered but due to no saddle anesthesia no loss of bowel or bladder control MRI is not indicated at this time. Spoke with radiologist regarding CT result please see result below. I will refer patient to PCP to discuss MRI and possible referral to inbound ingredient logistics specialist. Patient is feeling better after the Valium and Toradol. I did discuss CT results and plan for follow-up with patient he verbalized understanding. This text was generated using [employer] dictation system, please disregard any oddities of phrase or misspellings. Patient was given 1 Valium to go home with. I did encourage him to continue with the prednisone and lidocaine patches and previous prescriptions. Medical Records Medical records reviewed: Yes I reviewed the patient's medical records. Imaging Data Radiologic Study: Imaging: CT Scan Radiologist's impression: COMPARISON: CT LUMBAR SPINE WITHOUT CONTRAST from 05/22/2017 CR,XR XR LUMBAR SPINE COMPLETE from 09/18/2022 FINDINGS: Bones: There are no acute fractures, listhesis, nor pars defects. The previously present right transverse process fractures evident in 2017 are healed. There are no deformities at these levels evident.A transitional lumbosacral vertebra is noted with it is prominent right transverse process articulating with the sacrum and SI joint. At the disc base one level above this transitional vertebra there is a posterolateral right epidural space finding which measures approximately 10 x 9 millimeters and most probably a disc herniation at this level. This occupies the right lateral recess. There also is a pars interarticularis defect on the right side at level of this transitional vertebra, this previously present in 2017. No significant disc space findings above this level. No significant osseous lesions. IMPRESSION: 1. There is a prominent posterolateral right disc herniation at the disc space which is 1 level above the transitional lumbosacral vertebra, as described above. This occupies the right lateral recess. 2. Follow-up MRI recommended. HPI General Mode of arrival: ambulatory . Date/Time Provider Initiated Documentation: 09/19/22 09:14 . Limitations to Documentation: no limitations . Information obtained by: patient, RN notes reviewed and old records reviewed . HPI Narrative: 36-year-old male presents to the ER with a chief complaint of lower back pain with right lower extremity radiation of pain. He was seen here yesterday and had L-spine x-rays was given prednisone lidocaine patch and Flexeril which he did take this morning he has been taking as prescribed. He reports that he woke up this morning with numbness to his right lateral foot which radiates up into his lateral right calf. He denies any loss of bowel or bladder control, no saddle anesthesia. No other associated symptoms or concern. Gross motor is intact on my exam. Does have a past medical history of back strain and muscle spasms he reports that he fractured his back when he was 18. Related Data Home Medications Medication Instructions Recorded Confirmed fluoxetine 20 mg capsule (Prozac) 1 cap PO DAILY 12/24/14 09/19/22 lisinopril 10 mg tablet 30 mg PO DAILY 12/24/14 09/19/22 ibuprofen 600 mg tablet 600 mg PO Q8H PRN Pain #20 tabs 04/06/18 09/19/22 omeprazole magnesium 20 mg 40 mg PO PRN PRN 04/10/18 09/19/22 tablet,delayed release (Prilosec OTC) cyclobenzaprine 10 mg tablet 10 mg PO TID PRN #9 tabs 09/18/22 09/19/22 lidocaine 5 % topical patch 1 patch topical DAILY #15 ea 09/18/22 09/19/22 (Lidoderm) prednisone 20 mg tablet 40 mg PO DAILY #8 tabs 09/18/22 09/19/22 Previous Rx's Medication Instructions Recorded ibuprofen 600 mg tablet 600 mg PO Q8H PRN Pain #20 tabs 04/06/18 cyclobenzaprine 10 mg tablet 10 mg PO TID PRN #9 tabs 09/18/22 lidocaine 5 % topical patch 1 patch topical DAILY #15 ea 09/18/22 (Lidoderm) prednisone 20 mg tablet 40 mg PO DAILY #8 tabs 09/18/22 Allergies Allergy/AdvReac Type Severity Reaction Status Date / Time No Known Allergies Allergy Verified 09/19/22 09:43 General Stated Complaint: Orthopedic TANNA: 3 Review of Systems All systems reviewed & are unremarkable except as noted in HPI and below Musculoskeletal Musculoskeletal: Reports as per HPI, Reports back pain and Reports numbness Neurologic Neurologic: Reports numbness PFSH All Active Problems (Updated 09/19/22 @ 10:50 by Radha Chakraborty NP) Low back pain (Acute) Herniated lumbar intervertebral disc (Acute) Lumbago with sciatica, right side (Acute) Back strain (Acute) Muscle spasm (Acute) Social History Smoking/Tobacco Use Status: Current every day Tobacco Type: cigarettes Smoking risk assessment performed?: Yes Alcohol Intake: former Drug use: Daily Substance use type: marijuana Special ivan needs: No Do you feel safe at home: Yes Do you feel safe in your relationship?: Yes Exam Narrative Exam Narrative: Constitutional: Alert and oriented x3. Appears stated age. Normal body habitus. Head: Normocephalic, no trauma. Eyes: Pupils PERRL, Red reflex noted, EOM's intact. Eyelids symmetrical without lesions, discharge, or swelling. Chest: RRR, Normal S1, S2, distal pulses intact. Resp: Lungs clear to auscultation bilaterally, no wheezes, rales, or rhonchi. Musculoskeletal: Normal gait, 5/5 strength to all four extremities. Skin: No suspicious rashes or lesions. Capillary refill less than 2 sec. Neurologic: Cranial nerves II-XII intact. Alert and oriented x 3. Motor: No deficits noted. Sensory: Decreased laterally to his right calf, intact medially, mild decrease in sensation to his right lateral foot. Dorsal flexion pedal flexion intact, no decrease in sensation to his great toe, no saddle anesthesia. Reflexes: DTR's intact bilaterally.. Hematologic/Lymphatic: No ecchymosis, no lymphadenopathy. Course Vital Signs Vital signs: Vital Signs Temperature 37.0 C 09/19/22 09:12 Pulse 99 H 09/19/22 09:12 Respiratory Rate 20 09/19/22 09:12 Blood Pressure 140/86 09/19/22 09:12 Pulse Oximetry 100 09/19/22 09:12 Temperature 37.0 C 09/19/22 09:12 Temperature Source Temporal Artery Scan 09/19/22 09:12 Pulse 99 H 09/19/22 09:12 Respiratory Rate 20 09/19/22 09:12 Blood Pressure 140/86 09/19/22 09:12 Blood Pressure Position Sitting 09/19/22 09:12 Pulse Oximetry 100 09/19/22 09:12 Oxygen Delivery Method Room Air 09/19/22 09:12 Oxygen Flow Rate 0 09/19/22 09:12 Pain Level 10 09/19/22 09:12
[2022-09-19] MEDS: diazePAM 2 MG TAB PO ×2 (09:38→11:11)
[2022-09-19] MEDS: Ketorolac 30 MG/ML VIAL IM (09:38)
--- NOTE | 2022-09-19 10:05 | DI.CT_ITS ---
Exam(s) CT LUMBAR SPINE WO EXAM: CT LUMBAR SPINE WO CLINICAL HISTORY: Low back pain, RLE radiculopathy. TECHNIQUE: Imaging Protocol: Axial computed tomography images with coronal and sagittal reformatted images were created and reviewed COMPARISON: CT LUMBAR SPINE WITHOUT CONTRAST from 05/22/2017 CR,XR XR LUMBAR SPINE COMPLETE from 09/18/2022 FINDINGS: Bones: There are no acute fractures, listhesis, nor pars defects. The previously present right trans verse process fractures evident in 2017 are healed. There are no deformities at these levels evident .A transitional lumbosacral vertebra is noted with it is prominent right transverse process articulat ing with the sacrum and SI joint. At the disc base one level above this transitional vertebra there is a posterolateral right epidural space finding which measures approximately 10 x 9 millimeters and most probably a disc herniation at this level. This occupies the right lateral recess. There also is a pars interarticularis defect on the right side at level of this transitional vertebra, this previously present in 2017. No significant disc space findings above this level. No significant osseous lesions. IMPRESSION: 1. There is a prominent posterolateral right disc herniation at the disc space which is 1 level above the transitional lumbosacral vertebra, as described above. This occupies the right lateral recess. 2. Follow-up MRI recommended. Findings discussed by phone with ER provider RADIATION DOSE DELIVERED: 861.69mGy.cm Total DLP DATA REPOSITORY: All CT scans at this facility are submitted to the National Radiology Data Registry (NRDR) Dose Index Registry (DIR) with the [employer] (ACR). RADIATION OPTIMIZATION: All CT scans at this facility use at least one of these dose optimization te chniques: automated exposure control; mA and/or kV adjustment per patient size (includes targeted exa ms where dose is matched to clinical indication); or iterative reconstruction.
[2022-09-19 11:09] VITALS: BP 125/76; PULSE 77; RESP 18; TEMP 37.1; O2SAT 98
[2022-09-19 17:51] VITALS: BP 125/76; PULSE 77; RESP 18; TEMP 37.1; O2SAT 98
== END 2022-09-19 11:11 | disposition home or self-care (01) ==
PROVIDERS: Emergency Provider Registered Nurse Emergency; PCP Family Medicine
DX: M51.16 Intervertebral disc disorders with radiculopathy, lumbar region (principal); R20.0 Anesthesia of skin
CPT/HCPCS: 96372; 99284; 72131; 99283; J1885

== ENCOUNTER 2022-10-03 16:04 | Outpatient (CLI) | payer MEDICAID, SELFPAY ==
--- NOTE | 2022-10-03 15:00 | DI.MRI_ITS ---
Exam(s) MR LUMBAR SPINE WO EXAM: MR LUMBAR SPINE WO CLINICAL HISTORY: HERNIATION AND PAST FX 2017 LOWER BACK, NUMBNESS/TINGLING RLE. TECHNIQUE: Multiplanar multisequence MRI of the Lumbar spine was performed. COMPARISON: CR,XR XR LUMBAR SPINE COMPLETE from 09/18/2022 FINDINGS: Bones: The last intervertebral disc space is designated the L5/S1 level for the numbering purpose of this examination. The vertebral body heights are well maintained. Alignment is satisfactory. The si gnal characteristics are unremarkable. Cord: The conus tip ends at the T12 level. It is of normal size and signal intensity. T12-L1: No disc herniations or bulges are present. No central spinal canal or neural foraminal stenos is. L1-2: No disc herniations or bulges are present. No central spinal canal or neural foraminal stenosis . L2-3: No disc herniations or bulges are present. No central spinal canal or neural foraminal stenosis . L3-4: No disc herniations or bulges are present. No central spinal canal or neural foraminal stenosis . L4-5: There is a moderate size right paracentral disc herniation compressing the right L5 nerve root. There is right lateral recess stenosis present. There is also mild narrowing of the central spinal canal. There is posterior displacement of the distal right-sided nerve roots. L5-S1: No disc herniations or bulges are present. No central spinal canal or neural foraminal stenosi s. Soft tissues: The visualized SI joints and sacrum are well maintained. The paraspinal soft tissues ar e unremarkable. IMPRESSION: Moderate size right paracentral disc herniation causing right lateral recess stenosis and compressing the right L5 nerve root. DATA REPOSITORY:
== END 2022-10-03 16:24 ==
PROVIDERS: PCP Nurse Practitioner Family; Visit Provider Nurse Practitioner Family
DX: M51.26 Other intervertebral disc displacement, lumbar region (principal)
CPT/HCPCS: 72148

== ENCOUNTER 2023-01-29 03:03 | Outpatient (CLI) | payer MEDICAID, SELFPAY ==
[2023-01-29 07:21] LABS: HCT 51.7 % (40.0-50.0); HGB 16.8 g/dL (13.5-17.5); MCH 28.3 pg (27.0-33.0); MCHC 32.5 % (32.0-36.0); MCV 87 fL (80-95); MPV 9.9 fL (8.0-11.0); Platelet Count 302 10^3/uL (130-400); RBC 5.93 10^6/uL (4.36-5.78); RDW-SD 38.4 fL; WBC 10.59 10^3/uL (4.4-10.8)
[2023-01-29 08:15] LABS: ALT 37 U/L (16-63); AST 20 U/L (15-37); Alkaline Phosphatase 87 U/L (46-116); Anion Gap 10.3 mmol/L (3-11); BUN 21 mg/dL (7-18); Bilirubin, Total 0.3 mg/dL (0.2-1.0); CO2 26.7 mmol/L (21.0-32.0); CREATININE 1.4 mg/dL (0.70-1.30); Calcium 8.8 mg/dL (8.5-10.1); Chloride 105 mmol/L (98-107); Cholesterol 248 mg/dL (<200); Estimated GFR 66.39 (mL/min/1.73m2); Glucose 103 mg/dL (74-106); HDL Cholesterol 30 mg/dL (40-60); Potassium 4.4 mmol/L (3.5-5.1); Sodium 142 mmol/L (136-145); TSH (W/Ref FT4) 5.71 uIU/mL (0.36-3.74); Total Protein 7.4 g/dL (6.4-8.2); Triglyceride 503 mg/dL (<150)
[2023-01-29 08:46] LABS: FREE T4 0.69 ng/dL (0.76-1.46)
[2023-01-29 09:00] LABS: LDL CHOLESTEROL 163 mg/dL (<100)
[2023-01-29 09:07] LABS: Hemoglobin A1C 5.3 % (<5.7)
== END 2023-01-29 03:04 | disposition home or self-care (01) ==
LOC: LBO 03:04
PROVIDERS: PCP Nurse Practitioner Family; Visit Provider Nurse Practitioner Family
DX: I10 Essential (primary) hypertension (principal); E55.9 Vitamin D deficiency, unspecified; R79.89 Other specified abnormal findings of blood chemistry; E78.5 Hyperlipidemia, unspecified; R94.6 Abnormal results of thyroid function studies
CPT/HCPCS: 36415; 80053; 80061; 82306; 83721; 85027; 83036; 84439; 84443

== ENCOUNTER 2023-09-20 00:59 | Outpatient (CLI) | payer MEDICAID, SELFPAY ==
[2023-09-20 15:45] LABS: Abs Immature Grans 0.07 10^3/uL (0.0-0.06); Absolute Basophil Count 0.09 10^3/uL (0.0-0.2); Absolute Eosinophil Count 0.28 10^3/uL (0.0-0.7); Absolute Monocyte Count 0.67 10^3/uL (0.1-0.8); Basophils % 0.7; Eosinophils % 2.1; HCT 50.5 % (40.0-50.0); HGB 17.1 g/dL (13.5-17.5); Immature Grans % 0.5; Lymphocytes % 23.7; MCH 28.6 pg (27.0-33.0); MCHC 33.9 % (32.0-36.0); MCV 85 fL (80-95); MPV 10.5 fL (8.0-11.0); Platelet Count 326 10^3/uL (130-400); RBC 5.97 10^6/uL (4.36-5.78); RDW 12.4 % (11.8-14.1); RDW-SD 37.5 fL; WBC 13.31 10^3/uL (4.4-10.8)
[2023-09-20 15:53] LABS: Absolute Lymphocyte Count 3.15 10^3/uL (1.2-3.4); Absolute Neutrophil Count 9.05 10^3/uL (1.2-6.7)
[2023-09-20 16:21] LABS: ALT 65 U/L (16-63); AST 35 U/L (15-37); Albumin 4.8 g/dL (3.4-5.0); Alkaline Phosphatase 91 U/L (46-116); Anion Gap 7.8 mmol/L (3-11); BUN 15 mg/dL (7-18); Bilirubin, Total 0.6 mg/dL (0.2-1.0); CO2 31.2 mmol/L (21.0-32.0); CREATININE 1.3 mg/dL (0.70-1.30); Calcium 10.2 mg/dL (8.5-10.1); Chloride 100 mmol/L (98-107); Estimated GFR 72.56 (mL/min/1.73m2); FREE T4 0.78 ng/dL (0.76-1.46); Glucose 91 mg/dL (74-106); Potassium 5.1 mmol/L (3.5-5.1); Sodium 139 mmol/L (136-145); TSH 19.04 uIU/mL (0.36-3.74); Total Protein 8.1 g/dL (6.4-8.2)
[2023-09-20 22:30] LABS: Thyroglobulin Antibody 223 U/mL (<=60); Thyroperoxidase Antibody >1300 U/mL (<=60)
== END 2023-09-20 01:00 | disposition home or self-care (01) ==
LOC: LBO 00:59
PROVIDERS: PCP Nurse Practitioner Family; Referring Provider Nurse Practitioner Family; Visit Provider Nurse Practitioner Family
DX: R79.89 Other specified abnormal findings of blood chemistry (principal); Z01.818 Encounter for other preprocedural examination
CPT/HCPCS: 36415; 80053; 86376; 84439; 84443; 85025

== ENCOUNTER 2023-09-28 02:48 | Outpatient (CLI) | payer MEDICAID, SELFPAY ==
[2023-09-28 09:55] LABS: Abs Immature Grans 0.04 10^3/uL (0.0-0.06); Absolute Basophil Count 0.07 10^3/uL (0.0-0.2); Absolute Eosinophil Count 0.34 10^3/uL (0.0-0.7); Absolute Lymphocyte Count 2.08 10^3/uL (1.2-3.4); Absolute Monocyte Count 0.57 10^3/uL (0.1-0.8); Absolute Neutrophil Count 5.85 10^3/uL (1.2-6.7); Basophils % 0.8; Eosinophils % 3.8; HGB 16.4 g/dL (13.5-17.5); Immature Grans % 0.4; Lymphocytes % 23.2; MCH 28.7 pg (27.0-33.0); MCHC 33.5 % (32.0-36.0); MCV 86 fL (80-95); MPV 9.8 fL (8.0-11.0); Monocytes % 6.4; Neutrophils % 65.4; Platelet Count 316 10^3/uL (130-400); RBC 5.72 10^6/uL (4.36-5.78); RDW 12.1 % (11.8-14.1); RDW-SD 37.6 fL; WBC 8.95 10^3/uL (4.4-10.8)
[2023-09-28 10:33] LABS: TSH (W/Ref FT4) 5.51 uIU/mL (0.36-3.74)
[2023-09-28 10:56] LABS: FREE T4 0.75 ng/dL (0.76-1.46)
== END 2023-09-28 02:49 | disposition home or self-care (01) ==
LOC: LBO 02:49
PROVIDERS: PCP Nurse Practitioner Family; Visit Provider Nurse Practitioner Family
DX: I10 Essential (primary) hypertension (principal); R94.6 Abnormal results of thyroid function studies; R79.89 Other specified abnormal findings of blood chemistry; F41.8 Other specified anxiety disorders
CPT/HCPCS: 36415; 84439; 84443; 85025

== ENCOUNTER 2024-06-25 21:49 | Emergency (ER) | payer MEDICAID, SELFPAY ==
[2024-06-25 21:50] VITALS: BP 91/47; PULSE 110; RESP 20; TEMP 36.7; O2SAT 98
--- NOTE | 2024-06-25 22:00 | DI.RAD_ITS ---
Exam(s) XR TIB/FIB LT EXAM: XR TIB/FIB LT CLINICAL HISTORY: antler to leg. TECHNIQUE: 2D digital imaging was performed. Two views. COMPARISON: No exams were available for comparison FINDINGS: BONES: No acute fracture is present. No bony destructive lesion is seen. Visualized portion of knee a re unremarkable. Smoothly marginated bony densities beneath malleoli appear chronic, related to old injury. SOFT TISSUE: Normal. IMPRESSION: No evidence of fracture. Focal anterior soft tissue swelling. DATA REPOSITORY: RADIATION DOSE DELIVERED:
[2024-06-25] MEDS: Lidocaine 1% Multi-Dose 50 ML VIAL IJ (22:17)
[2024-06-25] MEDS: Amox. 875/Clav. 125, 2 TABS/BTL 1 TAB PO (22:17)
[2024-06-25 22:25] VITALS: BP 98/56; PULSE 94
[2024-06-25 22:26] VITALS: BP 100/58
--- NOTE | 2024-06-25 23:12 | ED.GENADUL_ITS ---
Discharge Plan Disposition Patient Disposition: Home Condition: Stable Discharge Details Clinical Impression: Puncture wound Primary Care Provider: Melissa Dobbs ED Provider: Lashonda Ivory Home Meds and New Rx's Prescriptions: New amoxicillin-pot clavulanate 875-125 mg tablet 1 tab PO BID Qty: 14 0RF Continued levothyroxine 150 mcg tablet 150 mcg PO DAILY Qty: 90 0RF omeprazole 20 mg capsule,delayed release(DR/EC) 20 mg PO DAILY Qty: 90 3RF lisinopril 30 mg tablet 30 mg PO DAILY Qty: 90 3RF fluoxetine 40 mg capsule 40 mg PO DAILY Qty: 90 3RF betamethasone dipropionate 0.05 % cream 1 applic topical DAILY PRN (Reason: skin irritation) Qty: 45 3RF cetirizine [Zyrtec] 10 mg tablet 10 mg PO DAILY PRN (Reason: allergy symptoms) Qty: 90 3RF Discharge Instructions Instructions: Wound Care ED Additional Instructions: Please rest tomorrow, elevate your leg is much as possible to allow time to heal, if you are in the dependent position healing will likely be delayed. I have decided not to suture your wound as it is a puncture wound and at high risk for becoming infected. Please take the Augmentin as prescribed, yogurt daily while on the antibiotic. Wash with soap and water once a day and reapply dressing, in the next 7 to 10 days you may allow it to air dry during the day when the leg is raised or elevated. Should you develop spreading redness, fever, worsening pain, please return for reassessment Recheck recommended in 72 hours Referrals: Melissa Dobbs NP [Primary Care Provider] - HPI General Date/Time Provider Initiated Documentation: 06/25/24 21:54 . HPI Narrative: 38-year-old male presents with puncture from dysuria and lower chest prior to arrival. Up-to-date on tetanus. Denies strength or sensation change. Does report pain to the area. Has not cleaned wound prior to arrival. Related Data Home Medications ?Medication ?Instructions ?Recorded ?Confirmed betamethasone dipropionate 0.05 % 1 applic topical DAILY PRN skin 05/14/24 06/25/24 topical cream irritation #45 grams cetirizine 10 mg tablet (Zyrtec) 10 mg PO DAILY PRN allergy 05/14/24 06/25/24 symptoms #90 tabs fluoxetine 40 mg capsule 40 mg PO DAILY #90 caps 05/14/24 06/25/24 levothyroxine 150 mcg tablet 150 mcg PO DAILY #90 tabs 05/14/24 06/25/24 lisinopril 30 mg tablet 30 mg PO DAILY #90 tabs 05/14/24 06/25/24 omeprazole 20 mg capsule,delayed 20 mg PO DAILY #90 caps 05/14/24 06/25/24 release amoxicillin 875 mg-potassium 1 tab PO BID #14 tabs 06/25/24 clavulanate 125 mg tablet Previous Rx's ?Medication ?Instructions ?Recorded betamethasone dipropionate 0.05 % 1 applic topical DAILY PRN skin 05/14/24 topical cream irritation #45 grams cetirizine 10 mg tablet (Zyrtec) 10 mg PO DAILY PRN allergy 05/14/24 symptoms #90 tabs fluoxetine 40 mg capsule 40 mg PO DAILY #90 caps 05/14/24 levothyroxine 150 mcg tablet 150 mcg PO DAILY #90 tabs 05/14/24 lisinopril 30 mg tablet 30 mg PO DAILY #90 tabs 05/14/24 omeprazole 20 mg capsule,delayed 20 mg PO DAILY #90 caps 05/14/24 release amoxicillin 875 mg-potassium 1 tab PO BID #14 tabs 06/25/24 clavulanate 125 mg tablet Allergies Allergy/AdvReac Type Severity Reaction Status Date / Time No Known Allergies Allergy Verified 06/25/24 22:00 General Stated Complaint: Trauma TANNA: 2 Exam Narrative Exam Narrative: Approximately 1 inch puncture wound noted to left mid tib-fib region, neurovascularly intact to extremity, down to fascia Course Vital Signs Vital signs: Vital Signs Temperature 36.7 C 06/25/24 21:50 Pulse 110 H 06/25/24 21:50 Respiratory Rate 20 06/25/24 21:50 Blood Pressure 91/47 L 06/25/24 21:50 Pulse Oximetry 98 06/25/24 21:50 Temperature 36.7 C 06/25/24 21:50 Pulse 94 H 06/25/24 22:25 Respiratory Rate 20 06/25/24 21:50 Respiratory Effort Normal 06/25/24 22:17 Respiratory Depth Normal 06/25/24 22:17 Respiratory Pattern Normal 06/25/24 22:17 Blood Pressure 100/58 L 06/25/24 22:26 Blood Pressure Mean 70 06/25/24 22:25 Blood Pressure Position Sitting 06/25/24 21:50 Pulse Oximetry 98 06/25/24 21:50 Oxygen Delivery Method Room Air 06/25/24 21:50 Oxygen Flow Rate 0 06/25/24 21:50 Pain Level 3 06/25/24 22:17 Medical Decision Making 38-year-old male presenting in no acute distress, x-ray was ordered to evaluate for puncture wounds. No evidence of obvious foreign body per my review of x- ray, pending radiology interpretation, tetanus 2019 and mild trauma. Started on Augmentin and will supply for 7 days. I did discuss with patient the risk of suturing outweighs benefit at this time, significant risk of infection with suturing puncture wound. Wound was irrigated copiously, recheck in 72 hours with primary care physician encouraged. Discharged home neurovascularly intact with hematoma and pressure dressing. Dressing changes daily recommended. Return precautions reviewed and patient expressed understanding. Encouraged to elevate tomorrow Quality:SDOH Health Related Social Needs: No Data to Display PFSH All Active Problems Puncture wound (Acute) Hypothyroidism (Chronic) Hypertension (Chronic) Hyperlipidemia (Chronic) Lumbar disc herniation with radiculopathy (Chronic) Large right L4-L5 disc herniation, right pars fracture. Sees [facility] Major depressive disorder, recurrent (Chronic) Generalized anxiety disorder (Chronic) Vitamin D deficiency (Chronic) Psoriasis (Chronic) ADHD (attention deficit hyperactivity disorder) (Chronic) Cigarette smoker (Chronic) Surgical History (Updated 11/01/23 @ 08:57 by Melissa Dobbs NP) S/P lumbar laminectomy (10/04/23) Decompression and instrumented fusion L4-L5 and L5-S1 Family History Mother Alcohol use disorder Depression Diabetes Father Alcohol use disorder Depression Hyperlipidemia Hypertension Sister No problems noted. Sister No problems noted. Brother No problems noted. Son No problems noted. Son No problems noted. Daughter No problems noted. Maternal Grandfather Multiple sclerosis Maternal Grandmother Heart disease Diabetes Paternal Grandfather No problems noted. Paternal Grandmother No problems noted. Social History Smoking/Tobacco Use Status: Former Tobacco Use tobacco type: cigarettes Quit Date: 05/24/23 Pack-years: 20 Tobacco: How many years used: 20 Quit status: considering quitting Second Hand Exposure: Yes Smoking risk assessment performed?: Yes Alcohol Intake: never Drug use: Daily Substance use type: marijuana Household members: spouse and children Housing: house Communication Needs: None Do you need help understanding health information?: Never Pets and animals: Yes Pets and animals: cat(s), dog(s) and farm animals Sexually active: Yes Do you think of yourself as: straight/heterosexual Current gender identity: male What is your relationship status?: How often do you talk on the phone with friends or family?: decline to answer How often do you get together with friends or relatives?: decline to answer How often do you attend caodaism or bahai services?: decline to answer Do you belong to any clubs or organized social groups?: decline to answer Panel score (0-1 are the most socially isolated patients): 1 What type of physical activity do you participate in: walking and weight lifting Duration: 60-90 minutes/day Frequency: 5-6 times per week Cassandra/Religious: None Special cassandra needs: No Seatbelt use: always Helmet use: Yes Helmet use: always Drive intox or ride w/intox backhaul driver: No Do you feel safe at home: Yes Do you feel safe in your relationship?: Yes
--- NOTE | 2024-06-25 23:12 | NUR.NOTE ---
Nursing Note: dressing supplies given to patient to take home. Puncture wound wrapped in the ER with telfa, gauze and coban.
--- NOTE | 2024-06-25 23:30 | DI.VRAD_ITS ---
PROCEDURE INFORMATION: Exam: XR Left Tibia and Fibula Exam date and time: 06/25/2024 10:18 PM Age: 38 years old Clinical indication: Injury or trauma; Other: [place] to leg; Puncture; Lower leg; Left; Foreign body involvement not specified TECHNIQUE: Imaging protocol: Radiologic exam of the left tibia and fibula. Views: 2 views. COMPARISON: No relevant prior studies available. FINDINGS: Bones/joints: Corticated ossifications adjacent to the medial and lateral malleoli, from prior injury. Soft tissues: Mild soft tissue swelling at the anterior aspect of the mid leg. No radiopaque foreign body. IMPRESSION: No radiopaque foreign body. No acute fracture or dislocation. Dictated and Authenticated by: Louis Brennan MD. Ordering:KIKE Gallego MD
== END 2024-06-25 23:21 | disposition home or self-care (01) ==
PROVIDERS: Emergency Provider Physician Assistant; PCP Nurse Practitioner Family
DX: S81.832A Puncture wound without foreign body, left lower leg, initial encounter (principal); W26.8XXA Contact with other sharp object(s), not elsewhere classified, initial encounter
CPT/HCPCS: 99283; 73590; J2003

== ENCOUNTER 2024-10-07 18:58 | Emergency (ER) | payer MEDICAID, SELFPAY ==
[2024-10-07 19:04] VITALS: BP 113/70; PULSE 107; RESP 22; TEMP 37.4; O2SAT 94
--- NOTE | 2024-10-07 19:15 | RT.EKG_ITS ---
APPROVED REPORT Exam: Resting ECG Reason for Exam: weakness Patient Location: E HR:94 bpm ECG Measurements Heart Rate 94 AXIS MI 164 P 28 QRSd 80 QRS 75 QT 319 T 64 QTc 399 Conclusion Sinus rhythm 94 normal axis no stemi
--- NOTE | 2024-10-07 19:15 | DI.RAD_ITS ---
Exam(s) XR CHEST 2V PA LATERAL EXAM: XR CHEST 2V PA LATERAL CLINICAL HISTORY: fever, cough TECHNIQUE: 2D digital imaging was performed. Two views. COMPARISON: No exams were available for comparison FINDINGS: HEART: Normal size. Aorta: Not dilated. PULMONARY VASCULATURE: Normal. MEDIASTINUM: Unremarkable. LUNGS: Clear. PLEURAL SPACE: No pleural effusion or pneumothorax. BONE:Unremarkable for age. SOFT TISSUES: Unremarkable. IMPRESSION: No acute abnormality. DATA REPOSITORY: RADIATION DOSE DELIVERED:
[2024-10-07 19:16] VITALS: BP 113/74; PULSE 107; RESP 22; TEMP 37.4; O2SAT 94
[2024-10-07] MEDS: Ketorolac 15 MG/ML VIAL IVP (19:40)
[2024-10-07] MEDS: Ondansetron 4 MG/2 ML VIAL IVP (19:40)
[2024-10-07] MEDS: Normal Saline 1,000 ML 1000 ML IV (19:41)
[2024-10-07 19:47] LABS: Abs Immature Grans 0.05 10^3/uL (0.0-0.06); Absolute Basophil Count 0.04 10^3/uL (0.0-0.2); Absolute Eosinophil Count 0.13 10^3/uL (0.0-0.7); Absolute Lymphocyte Count 0.37 10^3/uL (1.2-3.4); Absolute Monocyte Count 0.68 10^3/uL (0.1-0.8); Absolute Neutrophil Count 7.63 10^3/uL (1.2-6.7); Basophils % 0.4 %; Eosinophils % 1.5 %; HGB 16.2 g/dL (13.5-17.5); Immature Grans % 0.6 %; Lymphocytes % 4.2 %; MCHC 33.1 % (32.0-36.0); MCV 85 fL (80-95); MPV 10.3 fL (8.0-11.0); Monocytes % 7.6 %; Neutrophils % 85.7 %; Platelet Count 242 10^3/uL (130-400); RBC 5.79 10^6/uL (4.36-5.78); RDW 12.6 % (11.8-14.1); RDW-SD 38.5 fL
[2024-10-07 20:02] LABS: ALT 41 U/L (16-63); AST 22 U/L (15-37); Alkaline Phosphatase 102 U/L (46-116); Anion Gap 7.9 mmol/L (3-11); BUN 21 mg/dL (7-18); Bilirubin, Total 0.28 mg/dL (0.2-1.0); CO2 29.1 mmol/L (21.0-32.0); CREATININE 1.4 mg/dL (0.70-1.30); Calcium 8.8 mg/dL (8.5-10.1); Chloride 103 mmol/L (98-107); Estimated GFR 65.98 (mL/min/1.73m2); Glucose 95 mg/dL (74-106); Potassium 4.4 mmol/L (3.5-5.1); Sodium 140 mmol/L (136-145); Total Protein 7.5 g/dL (6.4-8.2)
--- NOTE | 2024-10-07 20:22 | W.ED.GENAD ---
Discharge Plan Disposition Patient Disposition: Home Discharge Details Clinical Impression: Influenza A Primary Care Provider: Melissa Dobbs ED Provider: Lashonda Ivory Home Meds and New Rx's Prescriptions: New oseltamivir [Tamiflu] 75 mg capsule 75 mg PO BID 5 Days Qty: 9 0RF Continued omeprazole 20 mg capsule,delayed release(DR/EC) 20 mg PO DAILY Qty: 90 3RF lisinopril 30 mg tablet 30 mg PO DAILY Qty: 90 3RF fluoxetine 40 mg capsule 40 mg PO DAILY Qty: 90 3RF betamethasone dipropionate 0.05 % cream 1 applic topical DAILY PRN (Reason: skin irritation) Qty: 45 3RF cetirizine [Zyrtec] 10 mg tablet 10 mg PO DAILY PRN (Reason: allergy symptoms) Qty: 90 3RF levothyroxine 150 mcg tablet 150 mcg PO DAILY Qty: 90 0RF Discharge Instructions Instructions: Flu Additional Instructions: take tamiflu as prescribed, twice daily for 5 days tylenol for fever control increased fluids, rest return with worsening pain, fever, or should any new concerns arise zofran as needed for nausea and vomiting HPI General Date/Time Provider Initiated Documentation: 10/07/24 19:19. HPI Narrative: This 38-year-old male with history of hypothyroidism, hypertension, hyperlipidemia presents with fever and lightheadedness with diaphoresis for the past 24 hours. Took Tylenol just prior to arrival, high fever at home. Denies any chest pain or shortness of breath. States has had a cough and sinus congestion. Reports myalgias. Skip sick with similar symptoms reportedly. COVID test at home negative per patient. Has a headache without meningismus. Related Data Home Medications ?Medication ?Instructions ?Recorded ?Confirmed betamethasone dipropionate 0.05 % 1 applic topical DAILY PRN skin 05/14/24 10/07/24 topical cream irritation #45 grams cetirizine 10 mg tablet (Zyrtec) 10 mg PO DAILY PRN allergy 05/14/24 10/07/24 symptoms #90 tabs fluoxetine 40 mg capsule 40 mg PO DAILY #90 caps 05/14/24 10/07/24 lisinopril 30 mg tablet 30 mg PO DAILY #90 tabs 05/14/24 10/07/24 omeprazole 20 mg capsule,delayed 20 mg PO DAILY #90 caps 05/14/24 10/07/24 release levothyroxine 150 mcg tablet 150 mcg PO DAILY #90 tabs 08/18/24 10/07/24 oseltamivir 75 mg capsule (Tamiflu) 75 mg PO BID 5 days #9 caps 10/07/24 Previous Rx's ?Medication ?Instructions ?Recorded betamethasone dipropionate 0.05 % 1 applic topical DAILY PRN skin 05/14/24 topical cream irritation #45 grams cetirizine 10 mg tablet (Zyrtec) 10 mg PO DAILY PRN allergy 05/14/24 symptoms #90 tabs fluoxetine 40 mg capsule 40 mg PO DAILY #90 caps 05/14/24 lisinopril 30 mg tablet 30 mg PO DAILY #90 tabs 05/14/24 omeprazole 20 mg capsule,delayed 20 mg PO DAILY #90 caps 05/14/24 release levothyroxine 150 mcg tablet 150 mcg PO DAILY #90 tabs 08/18/24 oseltamivir 75 mg capsule (Tamiflu) 75 mg PO BID 5 days #9 caps 10/07/24 Allergies Allergy/AdvReac Type Severity Reaction Status Date / Time No Known Allergies Allergy Verified 10/07/24 19:17 General Stated Complaint: Fever TANNA: 3 Exam Narrative Exam Narrative: This 38-year-old male alert, oriented, diaphoretic, lungs clear to auscultation, cardiac rate rhythm regular, distal pulses intact, no abdominal tenderness Course Vital Signs Vital signs: Vital Signs Temperature 37.4 C 10/07/24 19:04 Pulse 107 H 10/07/24 19:04 Respiratory Rate 22 10/07/24 19:04 Blood Pressure 113/70 10/07/24 19:04 Pulse Oximetry 94 10/07/24 19:04 Temperature 37.4 C 10/07/24 19:16 Temperature Source Oral 10/07/24 19:16 Pulse 107 H 10/07/24 19:16 Respiratory Rate 22 10/07/24 19:16 Blood Pressure 113/74 10/07/24 19:16 Blood Pressure Position Sitting 10/07/24 19:16 Pulse Oximetry 94 10/07/24 19:16 Oxygen Delivery Method Room Air 10/07/24 19:16 Oxygen Flow Rate 0 10/07/24 19:04 Lab/Test Results Lab/Test Results: Laboratory Tests Range/Units 01/14/25 19:40 WBC (4.4-10.8) 10^3/uL 8.90 RBC (4.36-5.78) 10^6/uL 5.79 H Hgb (13.5-17.5) g/dL 16.2 Hct (40.0-50.0) % 49.0 MCV (80-95) fL 85 MCH (27.0-33.0) pg 28.0 MCHC (32.0-36.0) % 33.1 RDW (11.8-14.1) % 12.6 Plt Count (130-400) 10^3/uL 242 MPV (8.0-11.0) fL 10.3 Immature Gran % % 0.6 Neutrophils % % 85.7 Lymphocytes % % 4.2 Monocytes % % 7.6 Eosinophils % % 1.5 Basophils % % 0.4 Nucleated RBC % (0.0-0.3) % 0.0 Absolute Neutrophils (1.2-6.7) 10^3/uL 7.63 H Absolute Lymphocytes (1.2-3.4) 10^3/uL 0.37 L Absolute Monocytes (0.1-0.8) 10^3/uL 0.68 Absolute Eosinophils (0.0-0.7) 10^3/uL 0.13 Absolute Basophils (0.0-0.2) 10^3/uL 0.04 Sodium (136-145) mmol/L 140 Potassium (3.5-5.1) mmol/L 4.4 Chloride (98-107) mmol/L 103 Carbon Dioxide (21.0-32.0) mmol/L 29.1 Anion Gap (3-11) mmol/L 7.9 BUN (7-18) mg/dL 21 H Creatinine (0.70-1.30) mg/dL 1.4 H Est GFR (CKD-EPI 2020) (mL/min/1.73m2) 65.98 Glucose (74-106) mg/dL 95 Calcium (8.5-10.1) mg/dL 8.8 Total Bilirubin (0.2-1.0) mg/dL 0.28 AST (15-37) U/L 22 ALT (16-63) U/L 41 Alkaline Phosphatase (46-116) U/L 102 Total Protein (6.4-8.2) g/dL 7.5 Albumin (3.4-5.0) g/dL 4.0 Medical Decision Making This 38-year-old male presents with report of fever and dizziness, influenza A positive. Patient will continue with supportive care, Tamiflu initiated, Zofran for home as needed for nausea diagnostic labs do not show evidence of acute abnormality, EKG with sinus tachycardia only, this is improved repeat vitals at time of discharge, chest x-ray per radiology interpretation my review does not show evidence of acute abnormality Quality:SDOH Health Related Social Needs: No Data to Display PFSH All Active Problems Influenza A (Acute) Hypothyroidism (Chronic) Hypertension (Chronic) Hyperlipidemia (Chronic) Lumbar disc herniation with radiculopathy (Chronic) Large right L4-L5 disc herniation, right pars fracture. Sees [facility] Major depressive disorder, recurrent (Chronic) Generalized anxiety disorder (Chronic) Vitamin D deficiency (Chronic) Psoriasis (Chronic) ADHD (attention deficit hyperactivity disorder) (Chronic) Cigarette smoker (Chronic) Surgical History (Updated 11/01/23 @ 08:57 by Melissa Dobbs NP) S/P lumbar laminectomy (10/04/23) Decompression and instrumented fusion L4-L5 and L5-S1 Family History Mother Alcohol use disorder Depression Diabetes Father Alcohol use disorder Depression Hyperlipidemia Hypertension Sister No problems noted. Sister No problems noted. Brother No problems noted. Son No problems noted. Son No problems noted. Daughter No problems noted. Maternal Grandfather Multiple sclerosis Maternal Grandmother Heart disease Diabetes Paternal Grandfather No problems noted. Paternal Grandmother No problems noted. Social History Smoking/Tobacco Use Status: Current every day Tobacco Type: cigarettes Tobacco: How many years used: 20 Quit status: considering quitting Second Hand Exposure: Yes Smoking risk assessment performed?: Yes Alcohol Intake: never Drug use: Daily Substance use type: marijuana Household members: spouse and children Housing: house Communication Needs: None Do you need help understanding health information?: Never Pets and animals: Yes Pets and animals: cat(s), dog(s) and farm animals Sexually active: Yes Do you think of yourself as: straight/heterosexual Current gender identity: male What is your relationship status?: How often do you talk on the phone with friends or family?: decline to answer How often do you get together with friends or relatives?: decline to answer How often do you attend rastafari or mosque services?: decline to answer Do you belong to any clubs or organized social groups?: decline to answer Panel score (0-1 are the most socially isolated patients): 1 What type of physical activity do you participate in: walking and weight lifting Duration: 60-90 minutes/day Frequency: 5-6 times per week Cassandra/Jewish: None Special cassandra needs: No Seatbelt use: always Helmet use: Yes Helmet use: always Drive intox or ride w/intox otr flatbed driver: No Do you feel safe at home: Yes Do you feel safe in your relationship?: Yes
[2024-10-07 20:23] LABS: COVID-19 PCR Negative (Negative); Influenza A PCR Positive (Negative); Influenza B PCR Negative (Negative); RSV PCR Negative (Negative)
[2024-10-07 20:25] LABS: Bilirubin Negative (Negative); Blood Negative (Negative); Clarity Clear (Clear); Glucose Negative (Negative); Ketones Negative (Negative); Leukocyte Esterase Negative (Negative); Nitrite Negative (Negative); Urobilinogen 0.2 mg/dL (Up to 0.2)
[2024-10-07 20:25] LABS: Source NASOPHARYNX
[2024-10-07] MEDS: Oseltamivir 75 MG CAP PO (20:44)
[2024-10-07 21:11] VITALS: BP 115/74; PULSE 85; RESP 22; TEMP 36.1; O2SAT 95
[2024-10-07] MEDS: Ondansetron O.D.T. 4 MG TABEF, 3 TABS/BTL PO (21:13)
--- NOTE | 2024-10-07 22:00 | DI.VRAD_ITS ---
PROCEDURE INFORMATION: Exam: XR Chest Exam date and time: 10/07/2024 8:33 PM Age: 38 years old Clinical indication: Cough and fever; Additional info: Fever, cough TECHNIQUE: Imaging protocol: Radiologic exam of the chest. Views: 2 views. COMPARISON: No relevant prior studies available. FINDINGS: Lungs: Unremarkable. No consolidation. Pleural spaces: Unremarkable. No pleural effusion. No pneumothorax. Heart/Mediastinum: Unremarkable. No cardiomegaly. Bones/joints: Unremarkable. IMPRESSION: No acute findings. Dictated and Authenticated by: Adonis Goldman MD. Ordering:KIKE Gallego MD
== END 2024-10-07 21:11 | disposition home or self-care (01) ==
PROVIDERS: Emergency Provider Physician Assistant; PCP Nurse Practitioner Family
DX: J10.1 Influenza due to other identified influenza virus with other respiratory manifestations (principal); E03.9 Hypothyroidism, unspecified; I10 Essential (primary) hypertension; E78.5 Hyperlipidemia, unspecified
CPT/HCPCS: 80053; 87637; 93005; 96361; 96374; 96375; 99285; 71046; 81003; 85025; 93010; 99284; J1885; J2405

== ENCOUNTER 2024-12-11 13:57 | Outpatient (CLI) | payer MEDICAID, SELFPAY ==
[2024-12-11 15:16] LABS: Anion Gap 7.4 mmol/L (3-11); BUN 15 mg/dL (7-18); CO2 29.6 mmol/L (21.0-32.0); CREATININE 1.1 mg/dL (0.70-1.30); Calcium 8.9 mg/dL (8.5-10.1); Chloride 105 mmol/L (98-107); Estimated GFR 88.12 (mL/min/1.73m2); Glucose 105 mg/dL (74-106); Sodium 142 mmol/L (136-145)
[2024-12-11 19:34] LABS: Lab Add On Test DONE
[2024-12-11 20:10] LABS: Cholesterol 285 mg/dL (<200); HDL Cholesterol 34 mg/dL (>or=40); TSH (W/Ref FT4) 1.09 uIU/mL (0.36-3.74); Triglyceride 522 mg/dL (<150); Vitamin D 25 Total 15 ng/mL (30-100)
[2024-12-11 20:21] LABS: LDL CHOLESTEROL 188 mg/dL (<100)
== END 2024-12-11 13:58 | disposition home or self-care (01) ==
LOC: LBO 14:00
PROVIDERS: PCP Nurse Practitioner Family; Visit Provider Nurse Practitioner Family
DX: I10 Essential (primary) hypertension (principal); E55.9 Vitamin D deficiency, unspecified
CPT/HCPCS: 36415; 80048; 80061; 82306; 83721; 84443